=== PATIENT | female | born 1935 | race Caucasian/White ===

== ENCOUNTER 2022-11-16 00:29 | Outpatient (CLI) | payer MEDICARE | END 2022-11-16 00:30 | disposition critical access hospital (66) | LOC: EMS 00:29 | DX: R51.9 Headache, unspecified (principal); W06.XXXA Fall from bed, initial encounter; Y92.092 Bedroom in other non-institutional residence as the place of occurrence of the external cause; Z79.01 Long term (current) use of anticoagulants | CPT/HCPCS: A0425; A0429 ==

== ENCOUNTER 2022-11-16 00:45 | Emergency (ER) | payer MEDICARE ==
--- NOTE | 2022-11-16 00:46 | ED Physician Documentation ---
PD HPI Fall - Stated complaint Stated Complaint: GLF, HIT HEAD - History obtained from History obtained from: Patient - History of Present Illness Mechanism of injury: Lost balance Fall distance: Standing position Timing - onset: How many minutes ago (approximately 30 minutes [employer]) Injury(ies) location: Head Associated symptoms: No: LOC Contributing factors: Anticoagulated - Additional information Additional information: patient is at [facility]. She tells me she was getting ready for bed when she lost her balance, causing her to fall while trying to get into her tall bed. She fell and struck right side of her head on the floor. Denies LOC. She takes eliquis. She c/o mild right-sided headache. Denies numbness, weakness, visual changes, nausea, vomiting. Denies neck pain. Review of Systems Eyes: denies: Loss of vision, Decreased vision GI: denies: Nausea, Vomiting Musculoskeletal: reports: Reviewed and negative Neurologic: reports: Headache, Head injury. denies: Generalized weakness, Focal weakness, Numbness, Near syncope, Syncope, Seizure, Confused, Altered mental status, LOC PD PAST MEDICAL HISTORY - Past Medical History Past Medical History: Yes Cardiovascular: Atrial fibrillation - Allergies Allergies/Adverse Reactions: Allergies Allergy/AdvReac Type Severity Reaction Status Date / Time Penicillins Allergy Rash Verified 11/16/22 00:49 Sulfa (Sulfonamide Allergy Rash Verified 11/16/22 00:49 Antibiotics) tramadol Allergy Rash Verified 11/16/22 00:49 PD ED PE NORMAL - Vitals Vital signs reviewed: Yes - General General: Alert and oriented X 3, No acute distress, Well developed/nourished - HEENT HEENT: Atraumatic, PERRL, EOMI - Neck Neck: Supple, no meningeal sign, No bony TTP - Cardiac Cardiac: No murmur - Respiratory Respiratory: No respiratory distress, Clear bilaterally - Abdomen Abdomen: Soft, Non tender - Back Back: No spinal TTP - Derm Derm: Normal color, Warm and dry - Extremities Extremities: No deformity, No tenderness to palpate, Normal ROM s pain, No edema - Neuro Neuro: Alert and oriented X 3, binder operator 2-12 intact, No motor deficit, No sensory deficit, Normal speech Eye Opening: Spontaneous Motor: Obeys Commands Verbal: Oriented GCS Score: 15 PD ED PE EXPANDED - Cardiac Cardiac: Irregularly irregular Results - Vitals Vitals: Oxygen O2 Source Room air - Rads (name of study) CTH Radiology: Prelim report reviewed, EMP read indepedently, See rad report PD Medical Decision Making - ED course ED course: CTH performed due to fall with head injury, and considering advanced patient age (87) and that she takes eliquis. No acute/concerning findings on this CT scan. On reevaluation, she is as when she first was brought in to ED: smiling, pleasant, calm and cooperative, in NAD. She is asking if she can go home and at this point d/c home is recommended; no need for further emergent resting. Usual return precautions for head injury/fall are reviewed. Departure - Departure Disposition: Home, Self Care Clinical Impression: Fall Qualifiers: Encounter type: initial encounter Qualified Code(s): W19.XXXA - Unspecified fall, initial encounter Head injury Qualifiers: Encounter type: initial encounter Qualified Code(s): S09.90XA - Unspecified injury of head, initial encounter Condition: Good Instructions: ED Head Injury Closed, ED Hypertension Conf Out Of Control Comments: The CAT scan of your head has no concerning findings; because you felt and hit your head, and considering that you are on the strong blood thinner Eliquis, the CAT scan was performed to assess for any bleeding. Again, fortunately, there is no evidence of any bleeding at this time. Continue your prescription medications as prescribed. You should return to the emergency department Should you develop concerning signs/symptoms, such as severe headache, weakness, numbness, changes in your vision. As we discussed, your blood pressures were quite high in the emergency department. This is an incidental finding, but you should follow-up with your primary care provider within the next 7 to 10 days for reevaluation. If your blood pressures remain elevated, your primary care provider might recommend changes in your blood pressure medication prescription. Discharge Date/Time: 11/16/22 02:39
--- NOTE | 2022-11-16 01:46 | CT Report ---
PROCEDURE: HEAD WO INDICATIONS: fall, head injury, on Eliquis TECHNIQUE: Noncontrast 4.5 mm thick angled axial sections acquired from the foramen magnum to the vertex. For r adiation dose reduction, the following was used: automated exposure control, adjustment of mA and/or kV according to patient size. COMPARISON: None. FINDINGS: Image quality: Excellent. CSF spaces: Basal cisterns are patent. No extra-axial fluid collections. Ventricles are normal in size and shape. Brain: No midline shift. No intracranial masses or hemorrhage. Celeste-white matter interface is norm al. Age-appropriate brain parenchymal volume loss and chronic small vessel ischemic change can be se en. Particular atrophy of the occipital lobes can be seen. Skull and face: No significant scalp hematoma is seen. Calvarium and visualized facial bones are int act, without suspicious lesions. Sinuses: Visualized sinuses and mastoids are clear. IMPRESSION: No intracranial hemorrhage is seen. No significant intracranial abnormality is seen. Age-appropriate brain parenchymal volume loss and chronic small vessel ischemic change can be seen. Particular atrophy of the occipital lobes is noted. Reviewed by: Mckinley Villarreal MD on 11/16/2022 12:45 AM [facility] Approved by: Mckinley Villarreal MD on 11/16/2022 12:45 AM [facility] Station ID: [id number]
[2022-11-16 02:24] VITALS: BP 195/95
== END 2022-11-16 02:39 | disposition home or self-care (01) ==
LOC: ED 00:45
DX: S09.90XA Unspecified injury of head, initial encounter (principal); W19.XXXA Unspecified fall, initial encounter; Z79.01 Long term (current) use of anticoagulants; I48.91 Unspecified atrial fibrillation
CPT/HCPCS: 36415; 99283; 99284

== ENCOUNTER 2023-01-27 13:01 | Outpatient (CLI) | payer MEDICARE ==
--- NOTE | 2023-01-27 16:27 | XRAY Report ---
PROCEDURE: Hip w/Pelvis 2-3V LT INDICATIONS: HIP PAIN TECHNIQUE: AP pelvis with lateral view(s) of the left hip(s). COMPARISON: None. FINDINGS: Bones: No fractures or dislocations. Pelvic ring appears intact. No suspicious bony lesions. Righ t total hip arthroplasty in place Soft tissues: The visualized bowel gas pattern is normal. No suspicious soft tissue calcifications. IMPRESSION: Unremarkable left hip. No fracture or dislocation. 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
== END 2023-01-27 13:02 | disposition home or self-care (01) ==
LOC: DI 13:01
PROVIDERS: ATTEND Physician Assistant Surgical
DX: M25.552 Pain in left hip (principal); Z96.641 Presence of right artificial hip joint

== ENCOUNTER 2023-05-05 11:18 | Outpatient (CLI) | payer MEDICARE ==
--- NOTE | 2023-05-05 15:31 | XRAY Report ---
PROCEDURE: Pelvis 3 View INDICATIONS: FALL WITH PELVIC PAIN TECHNIQUE: 3 view(s) of the pelvis acquired. COMPARISON: Pelvis and left hip radiographs 01/27/2023 FINDINGS: Bones: Right hip arthroplasty. Visualized hardware appears intact. No acute fractures or dislocation s. No suspicious bony lesions. Lower lumbar spine degenerative changes present. Soft tissues: Visualized bowel gas pattern is normal. No suspicious soft tissue calcifications. IMPRESSION: If there remains a high clinical concern for fracture, consider cross-sectional imaging now. If pain persists, consider repeat x-ray in 10-14 days or cross-sectional imaging. Reviewed by: Bobby Winn MD on 05/05/2023 3:30 PM PDT Approved by: Bobby Winn MD on 05/05/2023 3:30 PM PDT Station ID: [id number]
== END 2023-05-05 23:59 | disposition home or self-care (01) ==
LOC: DI.WOS 11:18
PROVIDERS: ATTEND Physician Assistant Surgical
DX: M25.552 Pain in left hip (principal)

== ENCOUNTER 2024-02-08 12:54 | Emergency (ER) | payer MEDICARE ==
--- NOTE | 2024-02-08 15:49 | Ultrasound Report ---
PROCEDURE: Duplex Ext Veins Left INDICATIONS: LLE swelling TECHNIQUE: Real-time imaging, as well as color and pulse Doppler interrogation, were performed of the lower extr emity deep veins from the inguinal ligament to the popliteal fossa. Attempted visualization of the ca lf veins was performed. COMPARISON: None. FINDINGS: The deep veins are normally compressible, and free of intraluminal thrombus. Color and pu lse Doppler demonstrate normal phasic intraluminal flow. There is normal augmentation response to di stal compression maneuver. Subcutaneous edema is seen in the left lower leg that surrounds evaluation of the peroneal veins. IMPRESSION: No deep venous thrombosis of the visualized lower extremity. Reviewed by: Bobby Hardy MD on 02/08/2024 3:47 PM PDT Approved by: Bobby Hardy MD on 02/08/2024 3:47 PM PDT Station ID: [id number]
--- NOTE | 2024-02-08 15:51 | ED Physician Documentation ---
PD HPI LOWER EXT INJURY - Stated complaint Stated Complaint: LT LEG SWELLING - Chief complaint Chief Complaint: Ext Problem - History obtained from History obtained from: Patient - Additional information Additional information: Patient is an 88-year-old female with a history of paroxysmal atrial fibrillation not currently on blood thinners presenting for evaluation of left lower leg swelling since Thursday. Patient states that she has noticed some increased swelling in the left leg. No chest pain or shortness of air. She received a prescription from nurse at [facility] for an ultrasound and presented to the emergency department to have the ultrasound done. Patient is unsure why she is no longer on a blood thinner.Denies trauma or injury to the leg. Review of Systems Constitutional: denies: Fever Cardiac: denies: Chest pain / pressure Respiratory: denies: Dyspnea GI: denies: Abdominal Pain Musculoskeletal: reports: Extremity swelling PD PAST MEDICAL HISTORY - Past Medical History Past Medical History: Yes Cardiovascular: Atrial fibrillation - Allergies Allergies/Adverse Reactions: Allergies Allergy/AdvReac Type Severity Reaction Status Date / Time Penicillins Allergy Rash Verified 02/08/24 13:11 Sulfa (Sulfonamide Allergy Rash Verified 02/08/24 13:11 Antibiotics) tramadol Allergy Rash Verified 02/08/24 13:11 - Social History Does the pt smoke?: No Smoking Status: Never smoker Does the pt drink ETOH?: No Does the pt have substance abuse?: No - Immunizations Immunizations are current?: Yes PD ED PE NORMAL - General General: Alert and oriented X 3, No acute distress, Well developed/nourished - HEENT HEENT: Atraumatic, Moist mucous membranes, Pharynx benign - Neck Neck: Supple, no meningeal sign - Cardiac Cardiac: RRR, Strong equal pulses - Respiratory Respiratory: No respiratory distress, Clear bilaterally - Extremities Extremities: Other (Bilateral lower extremity swelling, right slightly greater than left, venous Stasis changes bilaterally, distal pulses intact,) - Neuro Neuro: Alert and oriented X 3, No motor deficit, No sensory deficit, Normal speech Results - Vitals Vitals: Vital Signs - 24 hr 02/08/24 02/08/24 13:08 16:05 Temperature 36.5 C Heart Rate 70 64 Respiratory 16 18 Rate Blood Pressure 157/69 H 181/89 H O2 Saturation 96 99 Oxygen O2 Source Room air PD Medical Decision Making - ED course Complexity details: reviewed results, d/w patient, d/w family ED course: Patient is an 88-year-old female presenting for evaluation of left leg swelling for the past 4 days. No chest pain or shortness of air. Does have a history of paroxysmal A-fib but on my evaluation appears to be in sinus rhythm. At some point it seems that she has been taken off of anticoagulation and patient is unsure as to why but she was here for a fall last year. No signs of lower extremity cellulitis. Distal pulses intact. Compartments are soft. Ultrasound was obtained of the left lower extremity which was limited in its evaluation but no signs of deep venous thrombosis. Given the limitations of the exam I did recommend close follow-up with her primary care doctor and patient may need a repeat ultrasound in another week. Patient does not feel she can wear compression stockings as she has not been able to pull these up in the past. Recommend elevation and have close outpatient follow-up. Advised on concerning symptoms to return for. Departure - Departure Disposition: 01 Home, Self Care Clinical Impression: Left leg swelling Condition: Stable Instructions: ED Leg Swelling Unilateral Comments: The ultrasound today does not show signs of a blood clot but it was limited in its evaluation due to the swelling already present in your lower leg. We are not able to see all the veins in your lower leg. I would recommend follow-up with your primary care doctor in the next week as she you should have another ultrasound. In the meanwhile would recommend elevating your legs above the level of your heart to see if this helps with the swelling. Return to the ER wi th any worsening such as increased swelling, increased pain or any other concerns. Forms: PCP List Discharge Date/Time: 02/08/24 16:05
[2024-02-08 16:12] VITALS: BP 181/89; O2SAT 99
== END 2024-02-08 16:05 | disposition home or self-care (01) ==
LOC: ED 12:54
DX: M79.89 Other specified soft tissue disorders (principal); I48.0 Paroxysmal atrial fibrillation
CPT/HCPCS: 99283; 99284

== ENCOUNTER 2024-04-17 20:04 | Outpatient (CLI) | payer MEDICARE | END 2024-04-17 23:59 | disposition EMS.NT | LOC: EMS 20:04 | DX: R51.9 Headache, unspecified (principal); W07.XXXA Fall from chair, initial encounter; Y92.099 Unspecified place in other non-institutional residence as the place of occurrence of the external cause; Z79.01 Long term (current) use of anticoagulants ==

== ENCOUNTER 2024-06-24 17:57 | Outpatient (CLI) | payer MEDICARE | END 2024-06-24 17:58 | disposition EMS.NT | LOC: EMS 17:57 | DX: Z03.89 Encounter for observation for other suspected diseases and conditions ruled out (principal) ==